=== PATIENT | female | born 1990 ===

== ENCOUNTER 2017-01-05 20:40 | Emergency (ER) | payer SELFPAY ==
[2017-01-05 20:47] VITALS: RESP 20
[2017-01-05] MEDS ORDERED: Lidocaine 2% Inj (20ml) INFIL ONE (21:30)
[2017-01-05] MEDS ORDERED: Bacitracin 500 Units/gm Oint Foilpak UD TOP ONE (21:30)
--- NOTE | 2017-01-05 21:34 | C.PDOC ---
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 Patient denies any fever or chills. No other physical complaints at this time. 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) Current Symptoms Are (Timing): Still Present Recent travel outside of the [place]: No Past Medical History Reviewed: Historical Data, Nursing Documentation, Vital Signs Vital Signs: Last Vital Signs Temp 97.8 F 01/05/17 20:41 Pulse 79 01/05/17 20:41 Resp 20 01/05/17 20:41 BP 136/88 01/05/17 20:41 Pulse Ox 96 01/05/17 21:38 - Medical History PMH: No Chronic Diseases Surgical History: No Surg Hx Family History: States: Unknown Family Hx - Social History Hx Alcohol Use: Yes Hx Substance Use: No - Immunization History Hx Tetanus Toxoid Vaccination: Yes Hx Influenza Vaccination: No Hx Pneumococcal Vaccination: No Review Of Systems Constitutional: Negative for: Fever, Chills Skin: Positive for: Other (laceration to left thumb) Physical Exam - Physical Exam Appears: Well, Non-toxic Skin: Other (1 cm laceration medially to left thumb) Neurological/Psych: Oriented x3, Normal Speech, Normal Cognition ED Course And Treatment O2 Sat by Pulse Oximetry: 96 Progress Note: Plan: Bacitracin,Motrin tab, and laceration repair administered. Wound care discussed with patient; patient advised to follow up in 7-10 days for suture removal. Patient discharged. Laceration - Laceration Repair Left thumb Wound Length (In cm): 1cm Description Of Wound: Linear Wound Closure: Suture (2) Suture Technique And Material Used: Nylon (5.0) Disposition - Disposition Disposition: HOME/ ROUTINE Disposition Time: 21:50 Condition: STABLE Additional Instructions: Keep area clean and dry. Wound check in 2 days. Suture removal in 7-10 days. Watch for signs of infection including redness, swelling or discharge- return to ER right away if these arise. Instructions: Finger Laceration (ED) Forms: [employer] (Japanese) - Scribe Statement The provider has reviewed the documentation as recorded by the Scribe Brandee Gilliam All medical record entries made by the Marko were at my direction and personally dictated by me. I have reviewed the chart and agree that the record accurately reflects my personal performance of the history, physical exam, medical decision making, and the department course for this patient. I have also personally directed, reviewed, and agree with the discharge instructions and disposition.
[2017-01-05] MEDS ORDERED: Bacitracin 500 Units/gm Oint Foilpak UD ONE (21:37)
[2017-01-05] MEDS ORDERED: Lidocaine 2% Inj (20ml) ONE (21:37)
[2017-01-05 22:02] VITALS: BP 140/78; PULSE 90; TEMP 98; O2SAT 99
== END 2017-01-05 22:01 | disposition home or self-care (01) ==
LOC: C.ER 20:40
DX: S61.012A Laceration without foreign body of left thumb without damage to nail, initial encounter (principal); W26.0XXA Contact with knife, initial encounter; Y93.G1 Activity, food preparation and clean up

== ENCOUNTER 2017-07-04 20:50 | Emergency (ER) | payer SELFPAY ==
[2017-07-04] MEDS ORDERED: Pantoprazole 80 MG in Sodium Chloride 0.9% 100 ML IV STA (21:15)
[2017-07-04] MEDS ORDERED: Sodium Chloride 0.9% 1,000 ML IV ONE (21:15)
--- NOTE | 2017-07-04 21:15 | C.PDOC ---
History Of Present Illness Patient presents with rectal bleeding for about 12 days. No f/c/n/v, diarrhea, foreign body insertion or intercourse. States there is brbpr after each bowel movement, and after she wipes. No chest pain or palpitations Time Seen by Provider: 07/04/17 21:14 Chief Complaint (Nursing): GI Problem History Per: Patient History/Exam Limitations: no limitations Onset/Duration Of Symptoms: Days (12) Current Symptoms Are (Timing): Still Present Number Of Bleeding Episodes: Multiple: Amount of Blood Loss: Medium Severity: Moderate Pain Scale Rating Of: 5 Quality Of Discomfort: denies: Sharp, "Pain" Associated Symptoms: Rectal Bleeding, Lightheadedness. denies: Nausea, Vomiting , Diarrhea Modifying Factors: None Recent travel outside of the [place]: No Additional History Per: Patient Past Medical History Reviewed: Historical Data, Nursing Documentation, Vital Signs Vital Signs: Last Vital Signs Temp 98.1 F 07/04/17 20:55 Pulse 57 L 07/04/17 22:28 Resp 18 07/04/17 22:28 BP 110/68 07/04/17 22:28 Pulse Ox 100 07/04/17 22:28 Family History: States: No Known Family Hx - Social History Hx Alcohol Use: Yes Hx Substance Use: No - Immunization History Hx Tetanus Toxoid Vaccination: Yes Hx Influenza Vaccination: Yes Hx Pneumococcal Vaccination: Yes Review Of Systems Constitutional: Negative for: Fever, Chills ENT: Negative for: Throat Pain Cardiovascular: Negative for: Chest Pain Respiratory: Negative for: Shortness of Breath Gastrointestinal: Positive for: Abdominal Pain, Hematochezia. Negative for: Nausea, Vomiting Genitourinary: Negative for: Dysuria Musculoskeletal: Negative for: Back Pain Skin: Negative for: Rash Neurological: Negative for: Weakness Psych: Negative for: Anxiety Physical Exam - Physical Exam Appears: Non-toxic, No Acute Distress Skin: Warm, Dry Head: Normacephalic Eye(s): bilateral: Normal Inspection Oral Mucosa: Moist Neck: Supple Chest: Symmetrical Cardiovascular: Rhythm Regular Respiratory: No Rales, No Rhonchi, No Wheezing Gastrointestinal/Abdominal: Soft, No Tenderness, No Distention Rectal: Heme Positive, No Hemorrhoids, Other (BRBPR) Back: Normal Inspection Extremity: Normal ROM Extremity: Bilateral: Atraumatic Pulses: Left Dorsalis Pedis: Normal, Right Dorsalis Pedis: Normal Neurological/Psych: Oriented x3, Normal Speech, Normal Cognition Gait: Steady ED Course And Treatment - Laboratory Results Result Diagrams: 07/04/17 21:32 07/04/17 21:23 O2 Sat by Pulse Oximetry: 98 Pulse Ox Interpretation: Normal Reevaluation Time: 00:59 Medical Decision Making Medical Decision Making: Upon provider reevaluation patient is feeling better, is medically stable, and requires no further treatment in the ED at this time. Patient will be discharged home with Rx for protonix . Counseling was provided and all questions were answered regarding diagnosis and need for follow up with the referred clinic. There is agreement to discharge plan. Return if symptoms persist or worsen. Disposition Counseled Patient/Family Regarding: Studies Performed, Diagnosis, Need For Followup, Rx Given - Disposition Referrals: [facility] [Outside] [facility] [Outside] Disposition: HOME/ ROUTINE Disposition Time: 21:15 Condition: FAIR Prescriptions: Pantoprazole Sodium [Protonix] 40 mg PO DAILY #10 ect Instructions: Bloody Stools, Adult (DC) Forms: [employer] ([place] Citizen) - Clinical Impression Clinical Impression: Rectal bleed
[2017-07-04] MEDS ORDERED: Sodium Chloride 0.9% 1,000 ML ONE (21:27)
[2017-07-04 21:29] LABS: BASO # 0.1 K/uL (0.0-0.2); BASO % 0.9 % (0.0-2.0); EOS # 0.2 K/uL (0.0-0.7); EOS % 2.2 % (0.0-4.0); HEMOGLOBIN 12.4 g/dL (11.0-16.0); LYMPH # 2.8 K/uL (1.0-4.3); LYMPH % 34.4 % (20.0-40.0); MEAN CELL VOLUME 84.7 fL (81.0-99.0); MEAN CORPUSCULAR HGB CONC 34.2 g/dL (33.0-37.0); MEAN PLATELET VOLUME 7.6 fL (7.2-11.7); MONO # 0.6 K/uL (0.0-0.8); MONO % 7.5 % (0.0-10.0); NEUT # 4.4 K/uL (1.8-7.0); NRBC % 0.1 % (0.0-2.0); RBC 4.28 Mil/uL (3.80-5.20); RED CELL DISTRIBUTION WIDTH 13.4 % (11.5-14.5); WHITE BLOOD COUNT 8.1 K/uL (4.8-10.8)
[2017-07-04 21:35] LABS: HCG,QUALITATIVE URINE NEGATIVE (NEGATIVE)
[2017-07-04 21:37] LABS: INR 1.1; SQUAMOUS EPITHIAL 3 /hpf (0-5); URINE BILIRUBIN NEGATIVE (NEGATIVE); URINE BLOOD NEGATIVE (NEGATIVE); URINE CLARITY Clear (Clear); URINE COLOR Yellow (YELLOW); URINE GLUCOSE (UA) NORMAL (Normal); URINE LEUKOCYTE ESTERASE 1+ Leu/uL (Negative); URINE PROTEIN NEGATIVE (NEGATIVE)
[2017-07-04 21:41] LABS: ALB/GLOB RATIO 1.2 (1.0-2.1); ALBUMIN 4.2 g/dL (3.5-5.0); ALT/SGPT 66 U/L (9-52); AST/SGOT 49 U/L (14-36); BLOOD UREA NITROGEN 18 mg/dL (7-17); CALCIUM 9.3 mg/dl (8.6-10.4); GFR AFRICAN-AMERICAN > 60; GFR NON-AFRICAN AMERICAN > 60
[2017-07-04 22:28] VITALS: RESP 18
[2017-07-04] MEDS ORDERED: Iohexol 240 (50 ml) PO ONE (22:41)
[2017-07-04] MEDS ORDERED: Iohexol 240 (50 ml) ONE (22:46)
[2017-07-04] MEDS ORDERED: Iodixanol 320 MG/ML 100 ML BOTTLE IV ONE (22:51)
--- NOTE | 2017-07-05 00:35 | CT ---
EXAM: CT Abdomen and Pelvis With Intravenous Contrast EXAM DATE/TIME: 07/04/2017 10:38 PM CLINICAL HISTORY: 27 years old, female; Pain; Abdominal pain; Additional info: Rectal bleeding TECHNIQUE: Axial computed tomography images of the abdomen and pelvis with intravenous contrast. All CT scans at this facility use one or more dose reduction techniques, viz.: automated exposure control; ma/kV adjustment per patient size (including targeted exams where dose is matched to indication; i.e. head); or iterative reconstruction technique. Coronal and sagittal reformatted images were created and reviewed. CONTRAST: 100 mL of [id number] administered intravenously. COMPARISON: There are no prior studies for comparison. FINDINGS: Lower thorax: Heart size is normal. Lung bases are clear ABDOMEN: Liver: There is fatty infiltration of the liver. Gallbladder and bile ducts: unremarkable Pancreas: unremarkable Spleen: Spleen is unremarkable. There is an accessory spleen in the left upper quadrant. Adrenals: unremarkable Kidneys and ureters: unremarkable Stomach and bowel: Stomach is incompletely distended. Rotation is normal. There is no small bowel obstruction. Ileocecal region is unremarkable. Appendix and terminal ileum are unremarkable. There is moderate stool in the colon. There is diverticulosis. PELVIS: Appendix: See stomach and bowel Bladder: unremarkable Reproductive: Uterus and left adnexal structures are unremarkable. There is mild prominence of the right adnexa with a corpus luteum. ABDOMEN and PELVIS: Intraperitoneal space: There is no free air or free fluid. Bones/joints: unremarkable Soft tissues: unremarkable Vasculature: Vascular structures are unremarkable. Lymph nodes: There is no pathologic adenopathy. IMPRESSION: Fatty liver, no acute solid visceral abnormality; diverticulosis without CT findings of diverticulitis
[2017-07-05 01:12] VITALS: BP 119/76; PULSE 73; TEMP 98.7; O2SAT 99
== END 2017-07-05 01:11 | disposition home or self-care (01) ==
LOC: C.ER 20:50
DX: K62.5 Hemorrhage of anus and rectum (principal)
CPT/HCPCS: 74177; 80053; 81001; 84703; 85025; 85610; 85730; 86850; 86900; 96361; 96374; 99284; C9113; G0328; J7040; Q9966; Q9967

== ENCOUNTER 2017-12-16 20:36 | Emergency (ER) | payer OTHER ==
[2017-12-16 20:43] VITALS: BP 132/85; PULSE 86; TEMP 98.5; O2SAT 98
[2017-12-16 21:18] LABS: SQUAMOUS EPITHIAL 1 /hpf (0-5); URINE BILIRUBIN NEGATIVE (NEGATIVE); URINE BLOOD NEGATIVE (NEGATIVE); URINE CLARITY Clear (Clear); URINE COLOR Yellow (YELLOW); URINE GLUCOSE (UA) NORMAL (Normal); URINE LEUKOCYTE ESTERASE NEG Leu/uL (Negative); URINE PROTEIN NEGATIVE (NEGATIVE); URINE UROBILINOGEN NORMAL mg/dL (0.2-1.0)
[2017-12-16 21:27] LABS: HCG,QUALITATIVE URINE NEGATIVE (NEGATIVE)
--- NOTE | 2017-12-16 22:01 | C.PDOC ---
Time Seen by Provider: 12/16/17 20:48 Chief Complaint (Nursing): Female Genitourinary History Per: Patient History/Exam Limitations: no limitations Onset/Duration Of Symptoms: Days Current Symptoms Are (Timing): Still Present Past Medical History Reviewed: Historical Data, Nursing Documentation, Vital Signs Vital Signs: Last Vital Signs Temp 98.5 F 12/16/17 20:39 Pulse 86 12/16/17 20:39 Resp 18 12/16/17 20:39 BP 132/85 12/16/17 20:39 Pulse Ox 98 12/16/17 20:39 Surgical History: No Surg Hx Family History: States: Unknown Family Hx - Social History Hx Tobacco Use: No Hx Alcohol Use: Yes Hx Substance Use: No - Immunization History Hx Tetanus Toxoid Vaccination: Yes Hx Influenza Vaccination: Yes (3 wks ago) Hx Pneumococcal Vaccination: No ED Course And Treatment - Laboratory Results Lab Interpretation: Normal (UA negative) Urine POC: Negative O2 Sat by Pulse Oximetry: 98 Medical Decision Making Medical Decision Making: Plan: UA and GC culture sent to the lab. UA negative. Advised patient GC results will be available in 2-3 days. 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
--- NOTE | 2017-12-16 22:21 | C.PDOC ---
History Of Present Illness 27 y/o female c/o white foul smelling vaginal discharge and left sided back pain x 2 days, has unprotected sex with one partner. 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 hx ovarian cysts in past. no fever. chills, abdominal pain, nausea, vomiting or diarrhea. no recent antibiotic use. Time Seen by Provider: 12/16/17 20:48 Chief Complaint (Nursing): Female Genitourinary History Per: Patient History/Exam Limitations: no limitations Onset/Duration Of Symptoms: Days (2) Current Symptoms Are (Timing): Still Present Severity: Mild Quality Of Discomfort: Unable To Describe Associated Symptoms: denies: Fever, Chills, Nausea, Vomiting, Urinary Symptoms Past Medical History Reviewed: Historical Data, Nursing Documentation, Vital Signs Vital Signs: Last Vital Signs Temp 98.5 F 12/16/17 20:39 Pulse 86 12/16/17 20:39 Resp 18 12/16/17 20:39 BP 132/85 12/16/17 20:39 Pulse Ox 98 12/16/17 22:01 - Medical History PMH: No Chronic Diseases Surgical History: No Surg Hx Family History: States: Unknown Family Hx - Social History Hx Tobacco Use: No Hx Alcohol Use: Yes Hx Substance Use: No - Immunization History Hx Tetanus Toxoid Vaccination: Yes Hx Influenza Vaccination: Yes (3 wks ago) Hx Pneumococcal Vaccination: No Review Of Systems Constitutional: Negative for: Fever, Chills Gastrointestinal: Negative for: Nausea, Vomiting, Abdominal Pain Genitourinary: Positive for: Vaginal Discharge. Negative for: Dysuria, Freque ncy, Vaginal Bleeding Musculoskeletal: Positive for: Back Pain (lower left) Skin: Negative for: Rash Physical Exam - Physical Exam Appears: Non-toxic, No Acute Distress Skin: Warm, Dry Head: Atraumatic, Normacephalic Gastrointestinal/Abdominal: Bowel Sounds, Soft, No Tenderness Back: Normal Inspection, No CVA Tenderness Pelvic: Normal External Exam, Vaginal Discharge, No Cervical Motion Tenderness, No Cervix Open, No Adnexal Tenderness, Other (chaperoned by LUIS Varma. ) ED Course And Treatment - Laboratory Results Urine POC: Negative O2 Sat by Pulse Oximetry: 98 Medical Decision Making Medical Decision Making: vaginal discharge., no cmt, gc/chlamydia nd genital swabs done. will tx for bv and f/u cultures/. Plan: UA and GC culture sent to the lab. UA negative. Advised patient GC results will be available in 2-3 days. Disposition Counseled Patient/Family Regarding: Studies Performed, Diagnosis, Need For Followup, Rx Given - Disposition Referrals: [facility] [Outside] Disposition: HOME/ ROUTINE Disposition Time: 22:27 Condition: GOOD Additional Instructions: Please use medication at bedtime, one applicator in vagina. DO not drink alcohol while using this medicine or for 1 week after. Please contact [facility] and make a gynecology appointment for pap smear and follow up. Recommend no sexual relations until cultures are back. Prescriptions: Metronidazole [Metrogel-Vaginal] 0.75 applic VG HS #7 gel Instructions: Bacterial Vaginosis (DC) Forms: [employer] (Finnish), General Discharge Instructions - Clinical Impression Clinical Impression: Vaginitis
[2017-12-16 22:39] VITALS: RESP 20
== END 2017-12-16 22:35 | disposition home or self-care (01) ==
LOC: C.ER 20:36 → SUPCPDRO 20:36 → C.ER 22:35
DX: N76.0 Acute vaginitis (principal)